=== PATIENT | female | born 2005 | race Hispanic/Latino ===

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

== ENCOUNTER 2023-02-15 08:12 | Outpatient (CLI) | payer OTHER | END 2023-02-15 08:13 | disposition home or self-care (01) | LOC: CSHWCC 08:12 | PROVIDERS: ATTEND Nurse Practitioner Family | DX: T81.89XD Other complications of procedures, not elsewhere classified, subsequent encounter (principal) | CPT/HCPCS: 99204; G0463 ==

== ENCOUNTER 2023-02-22 11:31 | Outpatient (CLI) | payer OTHER | END 2023-02-22 11:32 | disposition home or self-care (01) | LOC: CSHWCC 11:31 | PROVIDERS: ATTEND Nurse Practitioner Family | DX: T81.89XD Other complications of procedures, not elsewhere classified, subsequent encounter (principal) | CPT/HCPCS: 99213; G0463 ==

== ENCOUNTER 2023-03-08 11:12 | Outpatient (CLI) | payer OTHER | END 2023-03-08 11:13 | disposition home or self-care (01) | LOC: CSHWCC 11:12 | PROVIDERS: ATTEND Nurse Practitioner Family | DX: T81.89XD Other complications of procedures, not elsewhere classified, subsequent encounter (principal) | CPT/HCPCS: 99212; G0463 ==

== ENCOUNTER 2024-06-03 12:17 | Emergency (ER) | payer OTHER, SELFPAY ==
[2024-06-03] MEDS ORDERED: INSULIN REGULAR IN 0.9 % NACL 100 ML ONE (13:55)
[2024-06-03] MEDS ORDERED: Insulin Regular, Human 100 UNIT/ML 10 ML VIAL ONE (13:55)
[2024-06-03 14:00] LABS: Phosphorus 3.5 mg/dL (2.3-4.7)
[2024-06-03 14:02] LABS: ALT (SGPT) 16 U/L (8-55); AST (SGOT) 13 U/L (5-34); Albumin 4.9 g/dL (3.5-5.0); Alkaline Phosphatase 97 U/L (40-100); BUN (Urea Nitrogen) 13 mg/dL (7.0-18.7); Bilirubin, Total 0.2 mg/dL (0.2-1.2); Calc. Creatinine Clearance 0 mL/min (70-130); Chloride 108 mmol/L (98-107); Estimated GFR 51; Globulin 4.6 g/dL (2.4-3.5); Glucose 231 mg/dL (70-105); Lipase 18 U/L (8-78); Magnesium 1.8 mg/dL (1.7-2.2); Potassium 3.6 mmol/L (3.5-5.1); Protein, Total 9.5 g/dL (6.0-8.3); Sodium 137 mmol/L (136-145)
[2024-06-03 14:04] LABS: Troponin I Less than 0.010 ng/mL (< 0.028)
[2024-06-03 14:13] LABS: #Basophils 0.15 10x3/uL (0.0-0.2); #Eosinphils 0.01 10x3/uL (0.0-0.5); #Monocytes 0.77 10x3/uL (0.0-1.1); #Neutrophils 10.47 10x3/uL (1.5-8.4); %Basophils 1.1 % (0.0-2.0); %Eosinophils 0.1 % (0.0-6.0); %Lymphocytes 18.7 % (18.0-47.0); %Monocytes 5.4 % (0.0-10.0); %Neutrophils 73.3 % (40.0-75.0); Hemoglobin 15.5 g/dL (12.0-15.5); Mean Corpuscular HGB CONC 31.6 g/dL (32.0-36.0); Mean Corpuscular Volume 91.8 fL (81.6-98.3); Mean Platelet Volume 10.8 fL (7.4-10.4); Platelet Count 363 10x3/uL (150-450); RBC Distribution Width 13.1 % (11.5-14.5); Red Blood Cell (RBC) Count 5.34 10x6/uL (3.90-5.03); White Blood Cell (WBC) Count 14.3 10x3/uL (3.5-10.5)
[2024-06-03 14:14] LABS: Carbon Dioxide Less than 8 mmol/L (22-29)
[2024-06-03] MEDS ORDERED: D5 1/2 NS w/20 mEq KCL 1,000 ML ONE (14:17)
[2024-06-03 14:24] LABS: Actual Bicarbonate (HCO3v) 6.9 mEq/L (22-28); Analyzer IN Cardio CS ICU; Base Excess -23.4 mEq/L (-2 - +2); Calcium, Ionized (venous) 1.28 mmol/L (1.16-1.32); Chloride (VBG) 110 mmol/L (98-106); Hematocrit-VBG 40 % (36.0-47.0); Hemoglobin (Hb) 13.6 g/dL (11.7-15.5); Potassium (VBG) 3.67 mmol/L (3.70-5.30); Puncture Site Other Site; Sodium 143 mmol/L (133-146); pH (venous) 6.992 (7.32-7.43)
[2024-06-03 14:59] LABS: Free T4 (Free Thyroxine) 0.86 ng/dL (0.70-1.48); Thyroid Stimulating Hormone 7.5797 uIU/mL (0.35-4.94)
[2024-06-03 16:41] LABS: Bilirubin Neg (Negative); Blood, Urine 10 (Negative); Clarity Slightly Cloudy (Clear); Glucose, Urine (Dipstick) >=1000 mg/dL (Negative); Ketone, Urine 150 mg/dL (Negative); Leukocyte Negative (Negative); Nitrite Negative (Negative); Protein, Urine (Dipstick) 30 mg/dl (Neg-Trace); Urobilinogen Normal mg/dL (Less than 2)
[2024-06-03 16:43] LABS: Pregnancy Test - Urine (BHCG) Negative (Negative); Pregu Control Background? CLEAR/WHITE (CLR/WHITE); Pregu Control Bar Appear? YES (CONTROL BAR)
[2024-06-03 16:58] LABS: Bacteria/HPF 1+ HPF (None Seen); CAUTI Indications for Culture Pelvic or flank pain; Mucous/LPF Rare LPF (<2+); RBC/HPF 0-3 HPF (0-3); Squamous Epithelial 0-3 HPF (0-3); WBC/HPF 0-3 HPF (0-3)
[2024-06-03 17:00] LABS: Urine Culture Reflex No No
== END 2024-06-03 16:33 | disposition short-term general hospital (02) ==
LOC: CSHERS 12:17
DX: E10.10 Type 1 diabetes mellitus with ketoacidosis without coma (principal); E03.9 Hypothyroidism, unspecified
CPT/HCPCS: 36415; 36416; 80053; 81001; 81025; 82010; 82805; 83605; 83690; 83735; 84100; 84439; 84443; 84484; 85025; 93005; 96374; 96375; J1815; J3480